=== PATIENT | male | born 1955 | race Caucasian/White ===

== ENCOUNTER 2019-06-06 13:29 | Emergency (ER) | payer OTHER ==
[~2019-06-06] VITALS: Ht 188 cm; Wt 88.5 kg
--- NOTE | 2019-06-06 13:31 | NUR ---
Patient BIBA BLS, transferred to bed 2. RN evaluating patient at bedside.
[2019-06-06 13:48] VITALS: BP 135/64
--- NOTE | 2019-06-06 13:54 | NUR ---
C/O FLANK PAIN + ABD PAIN 9/10 STARTED X1 HOUR AGO. PT STATED SHARP PAIN BEGAN AND PT ATE MEAL AND BEGAN VOMITING RIGHT AWAY. PT DENIES DYSURIA, FREQUENT URINATION OR ANY URINARY CHANGES. RESP EVEN AND UNLABORED. LUNG SOUNDS CLEAR IN ALL ALEXIS. ABD SOFT/ NON TENDER. BOWEL SOUNDS NORMOACTIVE. PT ABLE TO AMBULATE TO BATHROOM. AAOX4. SKIN DRY/ COOL. NO PMH NKA
[2019-06-06] MEDS ORDERED: NACL 0.9% 1,000 ML IV SCH (14:03)
[2019-06-06] MEDS ORDERED: MORPHINE SULFATE 4 MG/ML SYR IVP ONE (14:05)
[2019-06-06] MEDS ORDERED: ONDANSETRON 4 MG/2 ML VIAL IVP ONE (14:05)
--- NOTE | 2019-06-06 14:06 | NUR ---
SPOKE TO PT'S DAUGHTER RACHNA, PHONE# [phone] AND GAVE HER UPDATES OF PT.
[2019-06-06 14:26] LABS: APPEARANCE,URINE HAZY (CLEAR); BILIRUBIN,URINE NEGATIVE (NEGATIVE); BLOOD, URINE 3+ (NEGATIVE); COLOR,URINE YELLOW (YELLOW); LEUKOCYTE ESTERASE ,URINE NEGATIVE (NEGATIVE); NITRITE, URINE NEGATIVE (NEGATIVE); UGLUCOSE NEGATIVE (NEGATIVE)
[2019-06-06 14:35] LABS: BASOPHILS % (AUTO) 0.6 % (0.0-2.0); EOSINOPHILS # (AUTO) 0.1 K/uL (0-0.4); EOSINOPHILS % (AUTO) 1.6 % (0.0-4.0); HEMATOCRIT 38.4 % (36-52); HEMOGLOBIN 11.9 g/dL (12.0-18.0); LYMPHOCYTES # (AUTO) 0.8 K/uL (2.0-11.5); MEAN CORPUSCULAR HEMOGLOBIN 22 pg (27-31); MEAN CORPUSCULAR HGB CONC 31 g/dL (33-37); MONOCYTES # (AUTO) 0.3 K/uL (0.8-1.0); MONOCYTES % (AUTO) 4.8 % (1.7-9.3); NEUTROPHILS # (AUTO) 4.8 K/uL (1.8-7.7); PLATELET COUNT (AUTO) 224 K/uL (140-450); RED BLOOD CELL COUNT(AUTO) 5.41 MIL/uL (4.20-6.10); RED CELL DISTRIBUTION WIDTH 20.4 % (11.6-13.7)
[2019-06-06 14:59] LABS: CARBON DIOXIDE 24.9 mmol/L (21-32); CREATININE 1.1 mg/dL (0.6-1.3); POTASSIUM 3.9 mmol/L (3.5-5.1); TOTAL BILIRUBIN 0.5 mg/dL (0.0-1.0)
--- NOTE | 2019-06-06 15:04 | NUR ---
US HAS BEEN DONE AT BEDSIDE.
[2019-06-06 15:32] LABS: RBC,URINE >100 /HPF (0-5)
[2019-06-06 15:33] LABS: CALCIUM OXALATE CRYSTALS,UR 0-10 /HPF (None Seen); WBC,URINE 0-5 /HPF (0-5)
--- NOTE | 2019-06-06 16:15 | NUR ---
patient is resting in the bed. vss.
[2019-06-06 16:51] VITALS: BP 131/79
--- NOTE | 2019-06-06 16:51 | NUR ---
Patient discharged with v/s stable. Written and verbal after care instructions given and explained. Patient alert, oriented and verbalized understanding of instructions. Ambulatory with steady gait. All questions addressed prior to discharge. ID band removed. Patient advised to follow up with PMD. Rx of [place], Zofran, and Flomax given. Patient educated on indication of medication including possible reaction and side effects. Opportunity to ask questions provided and answered.
== END 2019-06-06 16:51 | disposition home or self-care (01) ==
LOC: MED 13:29
DX: R10.30 Lower abdominal pain, unspecified (principal)
CPT/HCPCS: 36415; 76770; 80053; 81001; 82150; 83690; 85025; 87086; 96374; 96375; 99284; J2270; J2405; J7030; Q0092